=== PATIENT | female | born 1965 | race Caucasian/White ===

== ENCOUNTER 2017-09-08 09:56 | Day surgery (SDC) | payer BC ==
[2017-09-07 13:42] VITALS: BMI 22.7
[2017-09-08] MEDS ORDERED: Promethazine HCl 25 MG/ML VIAL ONE (11:54)
[2017-09-08] MEDS ORDERED: Metoclopramide HCl 10 MG/2 ML VIAL ONE ×2 (11:54→12:34)
[2017-09-08] MEDS ORDERED: Ondansetron HCl/PF 4 MG/2 ML Vial ONE ×2 (11:54→12:34)
[2017-09-08] MEDS ORDERED: Propofol 200 MG/20 ML VIAL ONE (12:34)
--- NOTE | 2017-09-08 18:50 | OP ---
PREPROCEDURE DIAGNOSES: 1. Cervical dysphagia, vague. 2. Globus sensation. 3. Reflux. 4. History of irritable bowel syndrome. 5. Epigastric pain. 6. Colorectal cancer screening. PROCEDURES PERFORMED: Esophagogastroduodenoscopy, biopsy and dilatation, colonoscopy with polypecto my. POSTPROCEDURE DIAGNOSES: 1. Erosive gastritis with multiple small erosions in the antrum consistent with nonsteroidal antiin flammatory drug gastritis. Biopsies obtained. 2. Normal esophagus for dysphagia, empiric dilatation of 54-Congol[place] Rodriguez performed; second look s howing no effect. 3. Colonoscopy showed 1 cm polyp in the ascending colon, flat sessile, removed by snare polypectomy and submitted to pathology. RECOMMENDATIONS: 1. Await histopathology, timing of next colonoscopy will depend on the size and histology of that p olyp. 2. Await gastric biopsy. 3. Avoid NSAIDs. 4. Protonix increased to 40 mg daily. 5. Follow up with me in the office in 3 weeks to responsive therapy. ANESTHESIA: TIVA. PROCEDURE IN DETAIL: After the patient was informed of the risks, benefits, possible complications of endoscopy including perforation, bleeding, reactions to medication and aspiration, informed conse nt was obtained. The patient brought to endoscopy suite where she was sedated in gradual fashion. Once she was comfortable, a bite block was placed in the incisural orifice. The endoscope was advan sandie through the esophagus, stomach and second and third portion of duodenum and slowly removed. The duodenum was normal in the second and third portion, the bulb was normal. The antrum was notable f or multiple small erosions consistent with NSAID related gastropathy. Multiple biopsies were taken to rule out Helicobacter pylori. Biopsies were not taken for celiac as this has been done in the il st has been negative. The remainder of the stomach was normal for forward and retroflexed views. T he esophagus was normal. With regard to the patient's globus and cervical dysphagia, dilatation was performed. With 18 mm Rodriguez dilator, second look showed no effect. The scope was removed. The patient was turned in the room. A rectal examination was performed. The endoscope was advanced through anal canal through the colon to cecum was identified by the ileocecal valve and appendiceal orifice. Terminal ileum was entered and found to be normal. The scope was slowly removed with goo d visualization of the mucosa. There was 1 polyp which was 1 cm in size and flat, the right colon r emoved by snare polypectomy. There was good hemostasis. Remainder of the colon showed no evidence of polyps. Retroflexed views in the rectum were normal and the scope was removed and the procedure was terminated. The patient brought to recovery room in stable condition.
--- OUTSIDE RECORDS SUMMARY | 2017-09-09 17:05 | XMS | Clinical Summary ---
:1965 Author Organization [facility] [employer] Address [address] [place] [phone] Phone Care Team Providers Name Role Phone , Primary Care Provider Unavailable Allergies Not on File Current Medications Not on file Active Problems Not on file Social History Tobacco Use Types Packs/Day Years Used Date Never Assessed Sex Assigned at Date Recorded Not on file Last Filed Vital Signs Not on file Plan of Treatment Not on file Results Not on filefrom Last 3 Months
== END 2017-09-08 14:16 | disposition home or self-care (01) ==
LOC: SDC 09:56
PROVIDERS: ATTEND Internal Medicine Gastroenterology
PROC: 0DB68ZX Excision of Stomach, Via Natural or Artificial Opening Endoscopic, Diagnostic (ICD-10-PCS; principal; 2017-09-08)
PROC: 0DBK8ZX Excision of Ascending Colon, Via Natural or Artificial Opening Endoscopic, Diagnostic (ICD-10-PCS; principal; 2017-09-08)
DX: D12.2 Benign neoplasm of ascending colon (principal); K31.89 Other diseases of stomach and duodenum; K21.9 Gastro-esophageal reflux disease without esophagitis; K29.60 Other gastritis without bleeding; R13.19 Other dysphagia; K58.9 Irritable bowel syndrome, unspecified; Z88.0 Allergy status to penicillin; Z90.710 Acquired absence of both cervix and uterus; Z98.890 Other specified postprocedural states
CPT/HCPCS: 88305; 88312; J2405; J2550; J2704; J2765